=== PATIENT | male | born 1995 | race Caucasian/White ===

== ENCOUNTER 2017-02-28 20:42 | Emergency (ER) | payer OTHER ==
[~2017-02-28] VITALS: Ht 175.3 cm; Wt 78.9 kg
[2017-02-28 21:05] VITALS: Ht 175.3 cm; Wt 78.9 kg
[2017-02-28 23:41] VITALS: BP 128/64
== END 2017-02-28 23:41 | disposition home or self-care (01) ==
LOC: ED 20:42
DX: S00.412A Abrasion of left ear, initial encounter (principal); W22.8XXA Striking against or struck by other objects, initial encounter; Y93.89 Activity, other specified; Y92.89 Other specified places as the place of occurrence of the external cause; Y99.8 Other external cause status

== ENCOUNTER 2017-12-24 16:39 | Emergency (ER) | payer OTHER ==
[~2017-12-24] VITALS: Ht 175.3 cm; Wt 78.5 kg
[2017-12-24 16:57] VITALS: Ht 175.3 cm; Wt 78.5 kg
[2017-12-24 19:08] VITALS: BP 143/77
== END 2017-12-24 18:00 | disposition home or self-care (01) ==
LOC: ED 16:39
DX: T78.1XXA Other adverse food reactions, not elsewhere classified, initial encounter (principal); L27.2 Dermatitis due to ingested food; X58.XXXA Exposure to other specified factors, initial encounter